=== PATIENT | female | born 1945 | race Caucasian/White ===

== ENCOUNTER 2025-05-09 15:16 | Inpatient (IN) | payer MEDICARE ==
[~2025-05-09] VITALS: Ht 170.2 cm; Wt 53.1 kg
[2025-05-09 17:36] LABS: PLATELET COUNT (AUTO) 178 K/uL (150-450); RED BLOOD CELL COUNT(AUTO) 2.78 MIL/uL (4.0-5.2); RED CELL DISTRIBUTION WIDTH 14.0 % (11.5-15.0); WHITE BLOOD COUNT (AUTO) 7.6 K/uL (4.3-11.0)
[2025-05-09 17:41] LABS: CALCIUM, SERUM 9.0 mg/dL (8.5-10.1); CREATININE 1.7 mg/dL (0.6-1.3); SODIUM SERUM 142 mmol/L (136-145); UREA NITROGEN, BLOOD 40 mg/dL (7-18)
[2025-05-09 17:47] LABS: ASPARTATE AMINOTRANSFERASE 22 U/L (15-37); TOTAL PROTEIN, SERUM 6.1 g/dL (6.4-8.2)
[2025-05-09 17:48] LABS: ALCOHOL, BLOOD < 3 mg/dL (0-10)
[2025-05-09 19:22] LABS: APPEARANCE,URINE CLEAR (CLEAR); BLOOD, URINE TRACE-INTA Ery/uL (NEGATIVE); LEUKOCYTE ESTERASE ,URINE 3+ (NEGATIVE); NITRITE, URINE NEGATIVE (NEGATIVE); UGLUCOSE NEGATIVE (NEGATIVE)
[2025-05-09 19:30] LABS: ADD URINE CULTURE YES; SQUAMOUS EPITHELIAL CELL,UR Moderate /HPF (None Seen)
[2025-05-09 20:17] LABS: AMPHETAMINE, URINE NEGATIVE (NEGATIVE); BARBITURATE, URINE NEGATIVE (NEGATIVE); BENZODIAZEPINE, URINE NEGATIVE (NEGATIVE); CANNABINOID, URINE NEGATIVE (NEGATIVE); COCCAINE, URINE NEGATIVE (NEGATIVE); OPIATE, URINE NEGATIVE (NEGATIVE)
[2025-05-09] MEDS ORDERED: RISP0.5T65 PO (22:10)
[2025-05-09] MEDS ORDERED: FLUD0.1T PO (22:10)
[2025-05-09] MEDS ORDERED: OLAN5TAB3 PO (22:10)
[2025-05-09] MEDS ORDERED: SENN1TAB77 PO (22:10)
[2025-05-09] MEDS ORDERED: LEVO100T9 PO (22:10)
[2025-05-09] MEDS ORDERED: OXCA300T15 PO (22:10)
[2025-05-09] MEDS ORDERED: LORA-259 PO (22:10)
[2025-05-09] MEDS ORDERED: POLY17PO4 PO (22:10)
[2025-05-09] MEDS ORDERED: OXCA150T5 PO (22:10)
[2025-05-09] MEDS ORDERED: TEMA15CA5 PO (22:10)
[2025-05-09] MEDS ORDERED: ACETAMINOPHEN 325 MG TABLET PO PRN (23:00)
[2025-05-09] MEDS ORDERED: ZOLPIDEM TARTRATE 5 MG TABLET PO PRN (23:00)
[2025-05-09] MEDS: BLOOD SUGAR DIAGNOSTIC 1 EACH STRIP IN ONE (23:59)
[2025-05-10 00:07] VITALS: BP 116/59; TEMP 98.2; O2SAT 95
[2025-05-10] MEDS: LORAZEPAM 1 MG TABLET PO PRN (06:16)
[2025-05-10 08:00] VITALS: BP 122/65; TEMP 98; O2SAT 97
[2025-05-10] MEDS: CEPHALEXIN MONOHYDRATE 500 MG CAPSULE PO SCH (09:00)
[2025-05-10 16:00] VITALS: BP 126/65; TEMP 98; O2SAT 99
[2025-05-10] MEDS: OXCARBAZEPINE 150 MG TABLET PO SCH (16:46)
[2025-05-10 17:42] LABS: LDL 75 mg/dL (0-99)
[2025-05-10 18:07] LABS: CALCIUM, SERUM 9.3 mg/dL (8.5-10.1); CREATININE 1.6 mg/dL (0.6-1.3); SODIUM SERUM 142.0 mmol/L (136-145); UREA NITROGEN, BLOOD 34.0 mg/dL (7-18)
[2025-05-10 20:00] VITALS: BP 121/70; TEMP 97.5; O2SAT 99
[2025-05-10] MEDS: POLYETHYLENE GLYCOL 3350 17 GM POWD.PACK PO SCH (21:51)
[2025-05-10] MEDS: SENNOSIDES/DOCUSATE SODIUM 1 TAB TABLET PO SCH (21:52)
[2025-05-11 07:19] LABS: PLATELET COUNT (AUTO) 209 K/uL (150-450); RED BLOOD CELL COUNT(AUTO) 2.96 MIL/uL (4.0-5.2); RED CELL DISTRIBUTION WIDTH 14.0 % (11.5-15.0); WHITE BLOOD COUNT (AUTO) 7.7 K/uL (4.3-11.0)
[2025-05-11 07:32] LABS: CREATINE KINASE, TOTAL 61.0 U/L (26-192)
[2025-05-11] MEDS: LEVOTHYROXINE SODIUM 100 MCG TABLET PO SCH (07:40)
[2025-05-11 07:43] LABS: ASPARTATE AMINOTRANSFERASE 28.0 U/L (15-37); CALCIUM, SERUM 9.1 mg/dL (8.5-10.1); CREATININE 1.4 mg/dL (0.6-1.3); PHOSPHORUS 3.5 mg/dL (2.5-4.9); SODIUM SERUM 141.0 mmol/L (136-145); TOTAL PROTEIN, SERUM 6.7 g/dL (6.4-8.2); UREA NITROGEN, BLOOD 32.0 mg/dL (7-18)
[2025-05-11 08:00] VITALS: BP 146/68; TEMP 97.9; O2SAT 98
[2025-05-11] MEDS: FLUDROCORTISONE 0.1 MG TABLET PO SCH (08:58)
[2025-05-11 16:05] VITALS: BP 139/75; TEMP 99; O2SAT 97
[2025-05-11 20:00] VITALS: BP 148/84; TEMP 98.2; O2SAT 97
[2025-05-11] MEDS: ZOLPIDEM TARTRATE 5 MG TABLET PO PRN (22:50)
[2025-05-11 22:57] VITALS: BP 148/84; TEMP 98.2; O2SAT 97
[2025-05-12 07:09] LABS: PTH, INTACT 51 pg/mL (15-65)
[2025-05-12 08:00] VITALS: BP 151/85; TEMP 98; O2SAT 100
[2025-05-12] MEDS: LORAZEPAM 0.5 MG TABLET PO PRN (08:41)
[2025-05-12] MEDS: MAG HYDROX/AL HYDROX/SIMETH 30 ML UDC PO PRN (15:12)
[2025-05-12] MEDS: MAGNESIUM HYDROXIDE 30 ML UDC PO PRN (15:14)
[2025-05-12 16:00] VITALS: BP 126/61; TEMP 98; O2SAT 98
[2025-05-12 20:19] VITALS: BP 134/81; TEMP 98.2; O2SAT 99
[2025-05-13 08:00] VITALS: BP 150/74; TEMP 98.8; O2SAT 98
[2025-05-13] MEDS: GLUCERNA SHAKE 237 ML CAN PO SCH (08:11)
[2025-05-13 16:00] VITALS: BP 172/89; TEMP 98.2; O2SAT 98
[2025-05-13 20:21] VITALS: BP_SYST 110; BP_SYST 158; BP_DIAS 52; BP_DIAS 82; TEMP 97.8; TEMP 98.2; O2SAT 97; O2SAT 99
[2025-05-14 08:00] VITALS: BP 139/79; TEMP 97.9; O2SAT 98
[2025-05-14] MEDS: NITROFURANTOIN/MONOHYDRATE MACROCRYSTALS 100 MG CAPSULE PO SCH (09:04)
[2025-05-14 12:11] LABS: *SPE A/G RATIO 1.2 (0.7-1.7); *SPE ALBUMIN 3.3 g/dL (2.9-4.4); *SPE ALPHA-1-GLOBULIN 0.2 g/dL (0.0-0.4); *SPE ALPHA-2-GLOBULIN 0.7 g/dL (0.4-1.0); *SPE BETA GLOBULIN 1.2 g/dL (0.7-1.3); *SPE GLOBULIN, TOTAL 2.7 g/dL (2.2-3.9); *SPE M-SPIKE Not Observed g/dL (Not Observed); *SPE PROTEIN TOTAL 6.0 g/dL (6.0-8.5); *SPEGAMMA GLOBULIN 0.5 g/dL (0.4-1.8)
[2025-05-14 16:00] VITALS: BP 161/81; TEMP 98.4; O2SAT 96
[2025-05-14 20:00] VITALS: BP 153/80; TEMP 98.1; O2SAT 94
[2025-05-15 08:00] VITALS: BP 148/86; TEMP 98.7; O2SAT 98
[2025-05-15 08:26] LABS: ASPARTATE AMINOTRANSFERASE 26.0 U/L (15-37); CALCIUM, SERUM 9.3 mg/dL (8.5-10.1); CREATININE 1.2 mg/dL (0.6-1.3); PHOSPHORUS 3.9 mg/dL (2.5-4.9); SODIUM SERUM 135.0 mmol/L (136-145); TOTAL PROTEIN, SERUM 7.0 g/dL (6.4-8.2); UREA NITROGEN, BLOOD 25.0 mg/dL (7-18)
[2025-05-15] MEDS ORDERED: TEMAZEPAM 7.5 MG CAPSULE PO PRN ×2 (09:30→10:00)
[2025-05-15] MEDS: OXCARBAZEPINE 150 MG TABLET PO SCH (12:14)
[2025-05-15 16:08] VITALS: BP 160/83; TEMP 99.3; O2SAT 98
[2025-05-15 20:04] VITALS: BP 126/86; TEMP 98.7; O2SAT 95
[2025-05-16 08:00] VITALS: BP 140/79; TEMP 98.7; O2SAT 100
[2025-05-16 16:00] VITALS: BP 144/86; TEMP 98.7; O2SAT 99
[2025-05-16 20:20] VITALS: BP 127/62; TEMP 97.9; O2SAT 100
== END 2025-05-17 10:45 | DRG 885 ==
LOC: ER 15:20 → GPS 22:06
PROVIDERS: ADMIT Psychiatry & Neurology Psychosomatic Medicine
DX: F31.64 Bipolar disorder, current episode mixed, severe, with psychotic features (principal); N18.9 Chronic kidney disease, unspecified; N39.0 Urinary tract infection, site not specified; E87.1 Hypo-osmolality and hyponatremia; F60.3 Borderline personality disorder; F43.10 Post-traumatic stress disorder, unspecified; R94.31 Abnormal electrocardiogram [ECG] [EKG]; S30.0XXD Contusion of lower back and pelvis, subsequent encounter; W18.30XD Fall on same level, unspecified, subsequent encounter; E03.9 Hypothyroidism, unspecified; Z79.890 Hormone replacement therapy; Z79.899 Other long term (current) drug therapy; F41.9 Anxiety disorder, unspecified; E11.40 Type 2 diabetes mellitus with diabetic neuropathy, unspecified; E11.22 Type 2 diabetes mellitus with diabetic chronic kidney disease; I12.9 Hypertensive chronic kidney disease with stage 1 through stage 4 chronic kidney disease, or unspecified chronic kidney disease; Z86.73 Personal history of transient ischemic attack (TIA), and cerebral infarction without residual deficits; Z88.2 Allergy status to sulfonamides; Z88.8 Allergy status to other drugs, medicaments and biological substances; Z91.040 Latex allergy status; B96.20 Unspecified Escherichia coli [E. coli] as the cause of diseases classified elsewhere; B95.61 Methicillin susceptible Staphylococcus aureus infection as the cause of diseases classified elsewhere; D64.9 Anemia, unspecified
CPT/HCPCS: 36415; 76770-TC; 80048-TC; 80053-TC; 80061-TC; 81001; 82550-TC; 82962-TC; 83735-TC; 83970; 84100-TC; 84155; 84165; 84484-TC; 85025-TC; 87081-TC; 87086-TC; 87186-TC; 97112-TC; 97116-TC; 97530-TC; G0480